=== PATIENT | male | born 1940 | race Caucasian/White ===

== ENCOUNTER 2017-05-07 12:12 | Inpatient (IN) | payer OTHER ==
[~2017-05-07] VITALS: Ht 175.3 cm; Wt 73.9 kg
[2017-05-07 13:38] LABS: Basophils # (auto) 0 uL; Basophils % (auto) 0.2 % (0.0-2.0); Eosinophils # (auto) 0 uL; Eosinophils % (auto) 0.5 % (0.0-7.0); Hematocrit 38.8 % (41.0-53.0); Hemoglobin 13.2 g/dL (13.5-17.5); Lymphocytes # (auto) 1.4 uL; Lymphocytes % (auto) 20.1 % (10.0-50.0); Mean Corpuscular Hemoglobin 31.7 pg (28.0-32.0); Mean Corpuscular Hgb Conc. 34.1 g/dL (32.0-36.0); Mean Corpuscular Volume 92.8 fL (80.0-100.0); Monocytes # (auto) 0.5 uL; Monocytes % (auto) 7.8 % (0.0-12.0); Neutrophils # (auto) 4.9 uL; Neutrophils % (auto) 71.4 % (37.0-80.0); Nucleated Red Blood Cells % 0.1 %; Platelet Count (auto) 207 10^3/uL (140-450); Red Blood Cells 4.18 10^6/uL (4.5-5.90); Red Cell Distribution Width 13.5 % (11.8-14.3); White Blood Cell 6.9 10^3/uL (4.4-10.8)
[2017-05-07 13:50] LABS: INR 0.98 (0.9-1.15); Partial Thromboplastin Time 23.4 sec (22.64-33.71); Prothrombin Time 10.7 sec (9.37-12.3)
[2017-05-07 13:54] LABS: Acetaminophen < 2.0 ug/mL (10-30); Salicylate < 1.7 mg/dL (2.8-20.0)
[2017-05-07 13:56] LABS: Alanine Aminotransferase 16 U/L (16-61); Albumin 3.5 g/dL (3.4-5.0); Anion Gap 4 (5-15); Aspartate Aminotransferase 18 U/L (15-37); BUN/Creatinine Ratio 14.3; Blood Alcohol < 3.0 mg/dL (0-5); Blood Urea Nitrogen 32 mg/dL (7-18); Carbon Dioxide 34 mmol/L (21-32); Chloride 101 mmol/L (98-107); GFR African American 37 mL/min; GFR Non-African American 30 mL/min; Glucose 180 mg/dL (74-106); Potassium 3.7 mmol/L (3.5-5.1); Sodium 139 mmol/L (136-145)
[2017-05-07 13:59] LABS: Alkaline Phosphatase 65 U/L (45-117); Bilirubin, Total 0.8 mg/dL (0.2-1.0); Total Protein 7.2 g/dL (6.4-8.2)
[2017-05-07 19:24] LABS: Urine Bacteria NONE SEEN /hpf (None Seen); Urine Blood Negative /uL (Negative); Urine Hyaline Cast MOD /lpf (0 - 2); Urine Mucus FEW (None Seen); Urine WBC 2 /hpf (0 - 3)
[2017-05-07 19:26] LABS: Alcohol, Urine < 3.0 mg/dL (0-5); Amphetamine Screen, Urine NEGATIVE (NEGATIVE); Barbiturate Scree,Urine NEGATIVE (NEGATIVE); Benzodiazephine Screen, Urine NEGATIVE (NEGATIVE); Cannabinoid Screen, Urine POSITIVE (NEGATIVE); Cocaine Screen, Urine NEGATIVE (NEGATIVE); Opiate Scree,Urine NEGATIVE (NEGATIVE); Phencyclidine Screen, Urine NEGATIVE (NEGATIVE)
[2017-05-07] MEDS: SODIUM CHLORIDE 0.9% 1,000 ML IV SCH (22:58)
[2017-05-07] MEDS ORDERED: HYDROcodone-ACET 5/325MG TAB PO PRN (23:00)
[2017-05-07] MEDS ORDERED: ONDANSETRON HCL 4 MG/2 ML VIAL IV PRN (23:00)
[2017-05-07] MEDS ORDERED: DEXTROSE (50%) 50ML SYRG IV PRN (23:00)
[2017-05-07] MEDS ORDERED: TEMAZEPAM 15 MG CAP PO ONE (23:00)
[2017-05-07] MEDS ORDERED: ACETAMINOPHEN 325 MG TAB PO PRN (23:00)
[2017-05-07] MEDS ORDERED: TEMAZEPAM 15 MG CAP PO PRN (23:00)
[2017-05-07] MEDS ORDERED: PANTOPRAZOLE 40 MG TAB PO ONE (23:00)
[2017-05-07] MEDS ORDERED: cloNIDine HCL 0.1 MG TAB PO PRN (23:00)
[2017-05-08] MEDS: ACCU-CHEK COMFORT CURVE STRIP VI SCH ×4 (00:53→18:22)
[2017-05-08] MEDS ORDERED: LORazepam 2MG/ML-1ML VIAL ONE (01:49)
[2017-05-08] MEDS ORDERED: HALOPERIDOL LACTATE 5 MG/ML INJ VIAL IM ONE (04:30)
[2017-05-08] MEDS ORDERED: diphenhdrAMINE HCL 50 MG/1 ML VL IM ONE (04:30)
[2017-05-08] MEDS ORDERED: diphenhdrAMINE HCL 50 MG/1 ML VL ONE (04:32)
[2017-05-08] MEDS ORDERED: HALOPERIDOL LACTATE 5 MG/ML INJ VIAL ONE (04:32)
[2017-05-08] MEDS: InsuLIN REG 1unit/0.01ml Soln (100units/ml) SC SCH ×4 (06:24→18:00)
[2017-05-08 09:00] VITALS: BP 149/70
[2017-05-08 09:50] VITALS: BP 149/70
[2017-05-08] MEDS: PANTOPRAZOLE 40 MG TAB PO SCH (10:00)
[2017-05-08] MEDS: ENOXAPARIN SOD 30 MG/0.3 ML SYRINGE SC SCH (11:46)
[2017-05-08 13:00] VITALS: BP 151/69
[2017-05-08] MEDS ORDERED: OMEP20CA74 PO (14:00)
[2017-05-08] MEDS ORDERED: CLON05T PO (14:00)
[2017-05-08] MEDS ORDERED: TERA2CAP45 PO (14:00)
[2017-05-08] MEDS ORDERED: CARV6.2551 PO (14:00)
[2017-05-08] MEDS ORDERED: LOSA50TA6 PO (14:00)
[2017-05-08] MEDS ORDERED: LOVA20TA4 PO (14:00)
[2017-05-08] MEDS ORDERED: HYDR25TA4 PO (14:00)
[2017-05-08] MEDS ORDERED: DONE10TA40 PO (14:00)
[2017-05-08] MEDS ORDERED: GABA100C9 PO (14:00)
[2017-05-08] MEDS: SODIUM CHLORIDE 0.9% 1,000 ML IV SCH (14:27)
[2017-05-08 17:00] VITALS: BP 150/65
[2017-05-08 20:00] VITALS: BP 143/67
[2017-05-09] MEDS: ACCU-CHEK COMFORT CURVE STRIP VI SCH ×4 (00:06→18:01)
[2017-05-09] MEDS: InsuLIN REG 1unit/0.01ml Soln (100units/ml) SC SCH ×4 (00:08→18:00)
[2017-05-09 05:00] VITALS: BP 151/82
[2017-05-09] MEDS: SODIUM CHLORIDE 0.9% 1,000 ML IV SCH ×2 (05:46→21:10)
[2017-05-09 08:49] VITALS: BP 136/75
[2017-05-09] MEDS: PANTOPRAZOLE 40 MG TAB PO SCH (10:30)
[2017-05-09] MEDS: ENOXAPARIN SOD 30 MG/0.3 ML SYRINGE SC SCH (10:31)
[2017-05-09] MEDS: LORazepam 2MG/ML-1ML VIAL IV PRN ×2 (10:31→12:47)
[2017-05-09 16:45] VITALS: BP 128/70
[2017-05-09] MEDS ORDERED: clonazePAM 0.5 MG TAB PO PRN (18:15)
[2017-05-09 20:00] VITALS: BP 159/74
[2017-05-09 21:26] VITALS: BP 159/74
[2017-05-10] MEDS: InsuLIN REG 1unit/0.01ml Soln (100units/ml) SC SCH ×4 (00:17→12:00)
[2017-05-10] MEDS: ACCU-CHEK COMFORT CURVE STRIP VI SCH ×3 (00:17→12:00)
[2017-05-10 05:16] VITALS: BP 149/73
[2017-05-10 08:00] VITALS: BP 158/73
[2017-05-10] MEDS: PANTOPRAZOLE 40 MG TAB PO SCH (10:38)
[2017-05-10] MEDS: ENOXAPARIN SOD 30 MG/0.3 ML SYRINGE SC SCH (10:38)
[2017-05-10 12:00] VITALS: BP 148/71
[2017-05-10 14:30] VITALS: BP 154/70
[2017-05-30] MEDS ORDERED: LORazepam 2MG/ML-1ML VIAL IV ONE (11:15)
== END 2017-05-10 15:34 | DRG 683 ==
LOC: EDBD 12:12 → ER 12:12 → OVERFLOW 12:13 → CENTRAL 05-08 07:57
PROVIDERS: ADMIT Nurse Practitioner; ATTEND Internal Medicine
DX: N17.9 Acute kidney failure, unspecified (principal); I13.0 Hypertensive heart and chronic kidney disease with heart failure and stage 1 through stage 4 chronic kidney disease, or unspecified chronic kidney disease; E11.22 Type 2 diabetes mellitus with diabetic chronic kidney disease; E11.65 Type 2 diabetes mellitus with hyperglycemia; R45.851 Suicidal ideations; R62.7 Adult failure to thrive; W18.39XA Other fall on same level, initial encounter; N18.3 Chronic kidney disease, stage 3 (moderate); M25.551 Pain in right hip; M25.561 Pain in right knee; F02.80 Dementia in other diseases classified elsewhere, unspecified severity, without behavioral disturbance, psychotic disturbance, mood disturbance, and anxiety; F19.10 Other psychoactive substance abuse, uncomplicated; F32.9 Major depressive disorder, single episode, unspecified; G30.9 Alzheimer's disease, unspecified; I50.9 Heart failure, unspecified; M19.90 Unspecified osteoarthritis, unspecified site; Z90.49 Acquired absence of other specified parts of digestive tract; Y93.89 Activity, other specified; Y99.8 Other external cause status; Y92.091 Bathroom in other non-institutional residence as the place of occurrence of the external cause
CPT/HCPCS: 36415; 71045; 73502; 73560; 80053; 80307; 80320; 80329; 81001; 82962; 83880; 84484; 85025; 85610; 85730; 93005; 96372; J1815

== ENCOUNTER 2017-05-10 18:51 | Inpatient (IN) | payer OTHER ==
[~2017-05-10] VITALS: Ht 180.3 cm; Wt 73.3 kg
[~2017-05-10 18:51] MED LIST: CARV6.2551 PO; CLON05T PO; DONE10TA40 PO; GABA100C9 PO; HYDR25TA4 PO; LOSA50TA6 PO; LOVA20TA4 PO; OMEP20CA74 PO; TERA2CAP45 PO
[2017-05-10] MEDS ORDERED: HALOPERIDOL LACTATE 5 MG/ML INJ VIAL ONE (20:20)
[2017-05-10 20:52] LABS: Basophils # (auto) 0.1 uL; Basophils % (auto) 1.2 % (0.0-2.0); Eosinophils # (auto) 0.1 uL; Eosinophils % (auto) 0.8 % (0.0-7.0); Hematocrit 37.5 % (41.0-53.0); Hemoglobin 12.9 g/dL (13.5-17.5); Lymphocytes # (auto) 1.9 uL; Lymphocytes % (auto) 23.9 % (10.0-50.0); Mean Corpuscular Hemoglobin 31.9 pg (28.0-32.0); Mean Corpuscular Hgb Conc. 34.4 g/dL (32.0-36.0); Mean Corpuscular Volume 92.6 fL (80.0-100.0); Monocytes # (auto) 0.9 uL; Monocytes % (auto) 11.9 % (0.0-12.0); Neutrophils # (auto) 4.9 uL; Neutrophils % (auto) 62.2 % (37.0-80.0); Nucleated Red Blood Cells % 0.1 %; Platelet Count (auto) 182 10^3/uL (140-450); Red Blood Cells 4.05 10^6/uL (4.5-5.90); Red Cell Distribution Width 13.4 % (11.8-14.3); White Blood Cell 7.9 10^3/uL (4.4-10.8)
[2017-05-10 21:02] LABS: Partial Thromboplastin Time 25.2 sec (22.64-33.71); Prothrombin Time 10.9 sec (9.37-12.3)
[2017-05-10 21:10] LABS: Alanine Aminotransferase 16 U/L (16-61); Albumin 3.2 g/dL (3.4-5.0); Anion Gap 9 (5-15); Aspartate Aminotransferase 25 U/L (15-37); BUN/Creatinine Ratio 11.2; Blood Alcohol < 3.0 mg/dL (0-5); Blood Urea Nitrogen 20 mg/dL (7-18); Calcium 8.4 mg/dL (8.5-10.1); Carbon Dioxide 31 mmol/L (21-32); Chloride 100 mmol/L (98-107); GFR African American 48 mL/min; GFR Non-African American 39 mL/min; Glucose 146 mg/dL (74-106); Sodium 140 mmol/L (136-145)
[2017-05-10 21:13] LABS: Alkaline Phosphatase 63 U/L (45-117); Bilirubin, Total 0.8 mg/dL (0.2-1.0); Total Protein 6.7 g/dL (6.4-8.2)
[2017-05-10 21:19] LABS: Potassium 2.7 mmol/L (3.5-5.1)
[2017-05-10 21:25] LABS: Magnesium 1.7 mg/dL (1.6-2.6)
[2017-05-10 21:37] LABS: CRP High Sensitivity 1.01 mg/dL (< 0.3)
[2017-05-10] MEDS ORDERED: POTASSIUM CHL 10% (20 MEQ/15ML) 15ml ORAL SOLN PO ONE (21:45)
[2017-05-10] MEDS ORDERED: HALOPERIDOL LACTATE 5 MG/ML INJ VIAL IM ONE ×2 (22:30→23:00)
[2017-05-10] MEDS ORDERED: diphenhdrAMINE HCL 50 MG/1 ML VL ONE (23:11)
[2017-05-10] MEDS ORDERED: diphenhdrAMINE HCL 50 MG/1 ML VL IV ONE (23:15)
[2017-05-11] MEDS ORDERED: hydrALAZINE HCL 20 MG/ML VL IV ONE
[2017-05-11] MEDS ORDERED: SODIUM CHLORIDE 0.9% 1,000 ML IVB ONE (00:07)
[2017-05-11] MEDS ORDERED: PIPERACILLIN-TAZO 4.5GM 50 ML IV ONE (00:15)
[2017-05-11] MEDS ORDERED: HYDROcodone-ACET 5/325MG TAB PO PRN (01:00)
[2017-05-11] MEDS ORDERED: TEMAZEPAM 15 MG CAP PO PRN (01:00)
[2017-05-11] MEDS ORDERED: ACETAMINOPHEN 500 MG TAB PO PRN (01:00)
[2017-05-11] MEDS ORDERED: DEXTROSE (50%) 50ML SYRG IV PRN (01:00)
[2017-05-11] MEDS ORDERED: cloNIDine HCL 0.1 MG TAB PO PRN (01:00)
[2017-05-11] MEDS ORDERED: POTASSIUM CHL 20 Meq TABLET PO ONE (01:00)
[2017-05-11] MEDS ORDERED: ONDANSETRON HCL 4 MG/2 ML VIAL IV ONE (01:00)
[2017-05-11] MEDS: DOXYCYCLINE HYC 100MG/250ML 250 ML IV SCH ×2 (02:00→14:00)
[2017-05-11 02:07] LABS: Basophils # (auto) 0.1 uL; Basophils % (auto) 0.9 % (0.0-2.0); Eosinophils # (auto) 0.1 uL; Eosinophils % (auto) 0.7 % (0.0-7.0); Hematocrit 39.2 % (41.0-53.0); Hemoglobin 13.2 g/dL (13.5-17.5); Lymphocytes % (auto) 25.9 % (10.0-50.0); Mean Corpuscular Hemoglobin 31.6 pg (28.0-32.0); Mean Corpuscular Hgb Conc. 33.7 g/dL (32.0-36.0); Mean Corpuscular Volume 93.9 fL (80.0-100.0); Monocytes # (auto) 0.9 uL; Monocytes % (auto) 11.3 % (0.0-12.0); Neutrophils # (auto) 4.7 uL; Neutrophils % (auto) 61.2 % (37.0-80.0); Platelet Count (auto) 170 10^3/uL (140-450); Red Blood Cells 4.18 10^6/uL (4.5-5.90); Red Cell Distribution Width 13.2 % (11.8-14.3); White Blood Cell 7.6 10^3/uL (4.4-10.8)
[2017-05-11] MEDS ORDERED: POTASSIUM CHL 10% (20 MEQ/15ML) 15ml ORAL SOLN PO ONE (02:30)
[2017-05-11 02:39] LABS: BUN/Creatinine Ratio 10.5; Calcium 8.2 mg/dL (8.5-10.1)
[2017-05-11 02:42] LABS: Potassium 2.7 mmol/L (3.5-5.1)
[2017-05-11 03:55] LABS: Urine Bacteria FEW /hpf (None Seen); Urine Blood TRACE /uL (Negative); Urine Mucus FEW (None Seen); Urine Specific Gravity 1.005 (1.001-1.035); Urine WBC 2 /hpf (0 - 3)
[2017-05-11 04:05] LABS: Alcohol, Urine < 3.0 mg/dL (0-5); Amphetamine Screen, Urine NEGATIVE (NEGATIVE); Barbiturate Scree,Urine NEGATIVE (NEGATIVE); Benzodiazephine Screen, Urine NEGATIVE (NEGATIVE); Cannabinoid Screen, Urine NEGATIVE (NEGATIVE); Cocaine Screen, Urine NEGATIVE (NEGATIVE); Opiate Scree,Urine NEGATIVE (NEGATIVE); Phencyclidine Screen, Urine NEGATIVE (NEGATIVE)
[2017-05-11] MEDS: POTASSIUM CHL 20MEQ/100ML 100 ML IV SCH ×2 (04:19→05:00)
[2017-05-11] MEDS: GABAPENTIN 100 MG CAP PO SCH ×2 (06:00→14:00)
[2017-05-11] MEDS: ACCU-CHEK COMFORT CURVE STRIP VI SCH ×3 (06:40→17:00)
[2017-05-11] MEDS: InsuLIN REG 1unit/0.01ml Soln (100units/ml) SC SCH ×4 (06:40→22:00)
[2017-05-11 09:00] VITALS: BP 143/80
[2017-05-11] MEDS: clonazePAM 0.5 MG TAB PO SCH (10:00)
[2017-05-11] MEDS: CARVEDILOL 3.125 MG TAB PO SCH (10:00)
[2017-05-11] MEDS: LOSARTAN POTASSIUM 50 MG TAB PO SCH (10:00)
[2017-05-11 13:00] VITALS: BP 146/91
[2017-05-11] MEDS: LORazepam 2MG/ML-1ML VIAL IV PRN (15:00)
[2017-05-11 17:13] VITALS: BP 165/88
[2017-05-11 20:00] VITALS: BP 160/76
[2017-05-12] MEDS: CARVEDILOL 3.125 MG TAB PO SCH ×3 (00:01→23:56)
[2017-05-12] MEDS: clonazePAM 0.5 MG TAB PO SCH ×3 (00:02→23:58)
[2017-05-12] MEDS: GABAPENTIN 100 MG CAP PO SCH ×4 (00:02→23:57)
[2017-05-12] MEDS: ACCU-CHEK COMFORT CURVE STRIP VI SCH ×5 (00:02→22:00)
[2017-05-12] MEDS: TERAZOSIN HCL 1 MG CAP PO SCH ×2 (00:02→23:58)
[2017-05-12] MEDS: DOXYCYCLINE HYC 100MG/250ML 250 ML IV SCH ×2 (02:21→15:00)
[2017-05-12 05:00] VITALS: BP 145/75
[2017-05-12] MEDS: InsuLIN REG 1unit/0.01ml Soln (100units/ml) SC SCH ×4 (07:03→22:00)
[2017-05-12 07:30] VITALS: BP 145/87
[2017-05-12 09:00] VITALS: BP 144/78
[2017-05-12] MEDS: LOSARTAN POTASSIUM 50 MG TAB PO SCH (09:40)
[2017-05-12 13:25] VITALS: BP 143/66
[2017-05-12 17:15] VITALS: BP 151/70
[2017-05-12 17:18] LABS: Albumin 2.5 g/dL (3.4-5.0); BUN/Creatinine Ratio 11.7; Bilirubin, Total 0.5 mg/dL (0.2-1.0); Potassium 3.2 mmol/L (3.5-5.1); Total Protein 5.9 g/dL (6.4-8.2)
[2017-05-12 22:00] VITALS: BP 155/89
[2017-05-12] MEDS: DONEPEZIL HYDROCHLORIDE 5 MG TAB PO SCH ×2 (23:58)
[2017-05-13] MEDS: DOXYCYCLINE HYC 100MG/250ML 250 ML IV SCH ×2 (02:09→13:06)
[2017-05-13 04:05] VITALS: BP 184/106
[2017-05-13] MEDS: LORazepam 2MG/ML-1ML VIAL IV PRN (04:41)
[2017-05-13] MEDS: GABAPENTIN 100 MG CAP PO SCH ×3 (06:00→21:57)
[2017-05-13] MEDS: ACCU-CHEK COMFORT CURVE STRIP VI SCH ×4 (06:19→21:58)
[2017-05-13] MEDS: InsuLIN REG 1unit/0.01ml Soln (100units/ml) SC SCH ×4 (07:03→21:58)
[2017-05-13 08:00] VITALS: BP 117/69
[2017-05-13 09:00] VITALS: BP 117/69
[2017-05-13] MEDS: LOSARTAN POTASSIUM 50 MG TAB PO SCH ×2 (09:52→10:00)
[2017-05-13] MEDS: clonazePAM 0.5 MG TAB PO SCH ×3 (09:53→21:57)
[2017-05-13] MEDS: CARVEDILOL 3.125 MG TAB PO SCH ×3 (09:53→21:55)
[2017-05-13 13:00] VITALS: BP 137/84
[2017-05-13 16:05] VITALS: BP 117/69
[2017-05-13 17:00] VITALS: BP 161/77
[2017-05-13] MEDS: DONEPEZIL HYDROCHLORIDE 5 MG TAB PO SCH (21:54)
[2017-05-13] MEDS: TERAZOSIN HCL 1 MG CAP PO SCH (21:57)
[2017-05-14] MEDS: DOXYCYCLINE HYC 100MG/250ML 250 ML IV SCH (01:46)
[2017-05-14] MEDS: InsuLIN REG 1unit/0.01ml Soln (100units/ml) SC SCH ×2 (05:59→11:30)
[2017-05-14] MEDS: ACCU-CHEK COMFORT CURVE STRIP VI SCH ×2 (05:59→11:30)
[2017-05-14] MEDS: GABAPENTIN 100 MG CAP PO SCH (05:59)
[2017-05-14] MEDS: clonazePAM 0.5 MG TAB PO SCH (10:00)
[2017-05-14] MEDS: CARVEDILOL 3.125 MG TAB PO SCH (11:08)
[2017-05-14] MEDS: LOSARTAN POTASSIUM 50 MG TAB PO SCH (11:09)
[2017-05-14] MEDS ORDERED: DOXYCYCLINE 100 MG TAB/CAP PO SCH (22:00)
== END 2017-05-14 12:00 | disposition home or self-care (01) | DRG 177 ==
LOC: EDUNIT# 18:51 → EDBD 18:51 → ER 18:55 → OVERFLOW 18:56 → CENTRAL 05-11 02:55 → TELE-CENTR 05-11 03:37
PROVIDERS: ADMIT Nurse Practitioner Family; ATTEND Internal Medicine
DX: J15.6 Pneumonia due to other Gram-negative bacteria (principal); G93.40 Encephalopathy, unspecified; N17.0 Acute kidney failure with tubular necrosis; D64.9 Anemia, unspecified; E11.9 Type 2 diabetes mellitus without complications; E87.6 Hypokalemia; G30.9 Alzheimer's disease, unspecified; F02.80 Dementia in other diseases classified elsewhere, unspecified severity, without behavioral disturbance, psychotic disturbance, mood disturbance, and anxiety; F32.9 Major depressive disorder, single episode, unspecified; I10 Essential (primary) hypertension; Z79.4 Long term (current) use of insulin; Z79.899 Other long term (current) drug therapy
CPT/HCPCS: 36415; 36600; 70450; 71045; 80048; 80053; 80307; 80320; 81001; 82140; 82805; 82962; 83605; 83735; 84484; 85025; 85610; 85730; 86141; 87040; 87086; 93005; 96372; 96374; 96375; A4565; J1815; J2405; J2543; J3480; J3490